=== PATIENT | female | born 1990 | race Two or more races ===

== ENCOUNTER → 2018-03-31 | Outpatient (CLI) | payer OTHER ==
[~2018-03-31] MED LIST: IOHEXOL 240 MG/ML 50ML VIAL. ONE; IOHEXOL 240 MG/ML 50ML VIAL. PO ONE; IOHEXOL 300 MG/ML 75 ML VIAL. IV ONE
--- NOTE | 2018-03-31 18:05 | RAD ---
CT of the abdomen and pelvis with contrast, 03/31/2018: HISTORY: Right upper quadrant pain Multidetector CT imaging was performed following oral and IV administration of contrast. A tiny dense gallstone is evident in the gallbladder. The gallbladder is not distended. No pericholecystic edema is seen. The liver is unremarkable. No pancreatic abnormality is detected. The spleen is of normal size. Both kidneys demonstrate prominent extrarenal pelves. No hydronephrosis is evident. No abdominal or pelvic adenopathy is seen. The uterus and ovaries are unremarkable. The bowel loops are not dilated. The appendix shows no abnormality. No free air or significant free fluid is evident in the abdomen or pelvis. IMPRESSION: 1. Cholelithiasis. 2. No other significant abdominal or pelvic abnormality is detected. PQRS Compliance Statement: One or more of the following individualized dose reduction techniques were utilized for this examination: 1. Automated exposure control 2. Adjustment of the mA and/or kV according to patient size 3. Use of iterative reconstruction technique Electronically signed by: Reyes Ace MD (03/31/2018 6:02 PM) [facility]
== END | disposition home or self-care (01) ==
LOC: CT 14:16
PROVIDERS: ATTEND Nurse Practitioner Adult Health
DX: K80.80 Other cholelithiasis without obstruction (principal)
CPT/HCPCS: 74177; Q9966; Q9967